=== PATIENT | male | born 1985 | race Caucasian/White ===

== ENCOUNTER 2018-04-17 18:36 | Emergency (ER) | payer SELFPAY ==
[~2018-04-17] VITALS: Ht 177.8 cm; Wt 85.0 kg
[2018-04-17 18:38] VITALS: BP 146/97
--- NOTE | 2018-04-17 19:03 | NUR ---
PT AMBULATED TO RESTROOM WITH STEADY GAIT. PT PROVIDED URINE CUP FOR UA.
--- NOTE | 2018-04-17 19:15 | NUR ---
URINE COLLECTED AND SENT TO LAB. PT QUESTIONS ANSWERED.
[2018-04-17 19:26] LABS: MICROSCOPIC NOT IND
[2018-04-17 19:41] LABS: CULTURE INDICATED? NO
--- NOTE | 2018-04-17 19:54 | NUR ---
PT AMBULATED TO US.
--- NOTE | 2018-04-17 20:58 | NUR ---
PT D/C WITH D/C SUMMARY AND SCRIPT. ALL QUESTIONS ANSWERED. PT AMBULATED TO REGISTRATION DESK WITH STEADY GAIT FOR D/C HOME. PT DENIES ANY OTHER NEEDS PERTAINING TO THIS VISIT.
== END 2018-04-17 21:00 | disposition home or self-care (01) ==
LOC: ED 20:10
DX: I86.1 Scrotal varices (principal)
CPT/HCPCS: 76870; 81003; 99284